=== PATIENT | female | born 1965 | race Caucasian/White ===

== ENCOUNTER 2019-04-11 14:16 | Observation (INO) | payer OTHER ==
[~2019-04-11] VITALS: Ht 157.5 cm; Wt 86.5 kg
--- NOTE | 2019-04-11 14:47 | NUR ---
3 INTERMITTENT EPISODES OF SHARP CP RADIATING TO LEFT ARM AND ACCOMPANIED BY SOB SINCE 629
[2019-04-11] MEDS ORDERED: ASPIRIN 81 MG TABLET CHEW PO ONE (15:00)
[2019-04-11 15:02] LABS: BASOPHILS # (AUTO) 0.02 x10^3/uL (0-0.1); BASOPHILS % (AUTO) 0 % (0-1); EOSINOPHILS # (AUTO) 0.34 x10^3/uL (0-0.4); EOSINOPHILS % (AUTO) 6 % (1-7); LYMPHOCYTES # (AUTO) 1.62 x10^3/uL (1-3.4); LYMPHOCYTES % (AUTO) 28 % (22-44); MD NO; MEAN CORPUSCULAR HEMOGLOBIN 30.1 pg (27.0-34.8); MEAN CORPUSCULAR HGB CONC 33.3 g/dL (32.4-35.8); MEAN CORPUSCULAR VOLUME 90.5 fL (80-100); MEAN PLATELET VOLUME 8.9 fL (7.4-10.4); MONOCYTES % (AUTO) 9 % (2-9); NEUTROPHILS # (AUTO) 3.26 x10^3/uL (1.8-6.8); NEUTROPHILS % (AUTO) 57 % (42-75); PLATELET COUNT 304 x10^3/uL (130-400); RED BLOOD COUNT 5.34 x10^6/uL (3.82-5.3); RED CELL DISTRIBUTION WIDTH 13.2 % (9.6-15.2)
[2019-04-11 15:03] LABS: ALBUMIN 3.7 g/dL (3.4-5.0); ANION GAP 8 mmol/L (5-15); CALCIUM 9.2 mg/dL (8.5-10.1); CHLORIDE 110 mmol/L (98-107); CREATININE 0.71 mg/dL (0.55-1.02)
[2019-04-11] MEDS ORDERED: ASPIRIN 81 MG TABLET CHEW ONE (15:03)
[2019-04-11 15:06] LABS: TROPONIN I < 0.015 ng/mL (0.000-0.045)
--- NOTE | 2019-04-11 15:20 | NUR ---
PT NOTED TO HAVE ANOTHER EPISODE OF LEFT CHEST WALL PAIN, STATES FEELS LIKE SOMEONE SITTING ON HER. SHALLOW BREATHING AND PAIN TO LEFT ARM. LASTED 10 MINUTES WITH SOME CRAMPING N THE LEFT ARM AT END OF EPISODE. PT NO LONGER HAS PAIN AT THIS TIME. CONTINUE TO MONITOR
[2019-04-11] MEDS ORDERED: NITROGLYCERIN SINGLE TAB 0.4 MG SL STA (16:07)
--- NOTE | 2019-04-11 16:25 | NUR ---
HOSPITALIST AT BEDSIDE
--- NOTE | 2019-04-11 16:46 | NUR ---
REPORT TO MALINDA ASHRAF. TO BE TRANSPORTED TO FLOOR
[2019-04-11] MEDS ORDERED: NITROGLYCERIN 0.4 MG BOTTLE (25 TABS) SL PRN (17:00)
[2019-04-11] MEDS ORDERED: MORPHINE SULFATE 4 MG/ML, 1ML IV PRN (17:00)
[2019-04-11] MEDS ORDERED: IBUPROFEN 600 MG TABLET PO PRN ×2 (17:00)
[2019-04-11] MEDS ORDERED: LIDODERM 5% PATCH TD PRN (17:00)
[2019-04-11] MEDS ORDERED: KETOROLAC 30 MG/1 ML IV PRN (17:00)
[2019-04-11] MEDS ORDERED: NITROGLYCERIN 0.4 MG/SPRAY SL PRN (17:00)
[2019-04-11] MEDS ORDERED: ACETAMINOPHEN 325 MG TABLET PO PRN (17:00)
[2019-04-11] MEDS ORDERED: BACLOFEN 10 MG TABLET PO PRN (17:00)
[2019-04-11] MEDS ORDERED: OXYcodone IR 5MG TABLET PO PRN (17:00)
[2019-04-11 17:10] VITALS: BP 131/81
[2019-04-11 20:37] LABS: TROPONIN I < 0.015 ng/mL (0.000-0.045)
[2019-04-11] MEDS: SODIUM CHLORIDE FLUSH 10ML SYR IVF SCH (21:00)
[2019-04-11 21:28] VITALS: BP 128/78
[2019-04-12 02:52] LABS: ANION GAP 6 mmol/L (5-15); CALCIUM 8.6 mg/dL (8.5-10.1); CHLORIDE 113 mmol/L (98-107); CHOLESTEROL, TOTAL 149 mg/dL (140-239); CREATININE 0.78 mg/dL (0.55-1.02); TRIGLYCERIDES 87 mg/dL (50-200); VLDL CHOLESTEROL 17 mg/dL (0-25)
[2019-04-12 02:54] LABS: HDL CHOL % 33 % (28-40); HDL CHOLESTEROL (DIRECT) 49 mg/dL (40-60); LDL CHOLESTEROL,CALCULATED 83 mg/dL (54-169); LDL/HDL RATIO 1.7 (0.5-3.0)
[2019-04-12 02:56] LABS: TROPONIN I < 0.015 ng/mL (0.000-0.045)
[2019-04-12 03:09] VITALS: BP 118/77
[2019-04-12] MEDS ORDERED: AMLO5TAB10 PO (05:54)
[2019-04-12] MEDS ORDERED: ASPIRIN 325 MG TABLET EC PO SCH (06:00)
[2019-04-12] MEDS: SODIUM CHLORIDE FLUSH 10ML SYR IVF SCH (07:33)
[2019-04-12] MEDS: AMLODIPINE 5 MG TABLET PO SCH ×2 (07:33→10:38)
[2019-04-12 08:00] LABS: TROPONIN I < 0.015 ng/mL (0.000-0.045)
[2019-04-12 08:15] VITALS: BP 119/77
[2019-04-12 13:21] VITALS: BP 110/74
== END 2019-04-12 17:56 | disposition home or self-care (01) ==
LOC: ED 15:49 → EDIP 16:06 → INTOOBSV 16:06 → 5SO 17:04
PROVIDERS: ADMIT Internal Medicine; ATTEND Internal Medicine
DX: R07.89 Other chest pain (principal); M79.602 Pain in left arm; E66.9 Obesity, unspecified; E87.6 Hypokalemia; R73.9 Hyperglycemia, unspecified; I10 Essential (primary) hypertension; Z79.899 Other long term (current) drug therapy; Z88.2 Allergy status to sulfonamides; Z68.34 Body mass index [BMI] 34.0-34.9, adult
CPT/HCPCS: 36415; 71046; 72040; 73030; 80048; 80061; 82040; 84484; 85025; 93005; 93017; 93306; 99284; G0378

== ENCOUNTER → 2020-06-08 | Outpatient (CLI) | payer OTHER ==
[~2020-06-08] MED LIST: AMLO5TAB10 PO
== END | disposition home or self-care (01) ==
LOC: CFH 12:03
PROVIDERS: ATTEND Family Medicine
DX: R92.2 Inconclusive mammogram (principal)
CPT/HCPCS: 77065; G0279